=== PATIENT | male | born 1985 | race Caucasian/White ===

== ENCOUNTER 2022-06-26 14:21 | Emergency (ER) | payer OTHER ==
[~2022-06-26] VITALS: Ht 188 cm; Wt 136.5 kg
[2022-06-26 14:47] VITALS: O2SAT 98
[2022-06-26] MEDS ORDERED: KETOROLAC TROMETHAMINE 30 MG/ML VIAL IV STA (14:52)
[2022-06-26] MEDS ORDERED: FAMOTIDINE 20 MG/2 ML VIAL IV STA (14:52)
[2022-06-26] MEDS ORDERED: ONDANSETRON HCL INJ 2MG/ML 2ML 2 MG/ML VIAL IV STA (14:52)
[2022-06-26] MEDS ORDERED: SODIUM CHLORIDE 0.9% 1000ML 1,000 ML IV STA (14:57)
[2022-06-26] MEDS ORDERED: SODIUM CHLORIDE 0.9% 1000ML 1,000 ML ONE (15:00)
[2022-06-26] MEDS ORDERED: KETOROLAC TROMETHAMINE 30 MG/ML VIAL ONE (15:00)
[2022-06-26] MEDS ORDERED: ONDANSETRON HCL INJ 2MG/ML 2ML 2 MG/ML VIAL IV ONE (15:00)
[2022-06-26] MEDS ORDERED: KETOROLAC TROMETHAMINE 30 MG/ML VIAL IV ONE (15:00)
[2022-06-26] MEDS ORDERED: FAMOTIDINE 20 MG/2 ML VIAL IV ONE ×2 (15:00)
[2022-06-26] MEDS ORDERED: SODIUM CHLORIDE 0.9% 1000ML 1,000 ML IV ONE (15:00)
[2022-06-26] MEDS ORDERED: IOPAMIDOL 370 MG/ML 100 ML INFUS..BTL INJ ONE (15:33)
[2022-06-26] MEDS ORDERED: METHYLPREDNISOLONE SOD SUCC 125 MG/2ML VIAL IV ONE (15:45)
[2022-06-26] MEDS ORDERED: LEVOFLOXACIN 500 MG TAB PO ONE (15:45)
[2022-06-26] MEDS ORDERED: PENTASA500 MG PO (15:48)
[2022-06-26] MEDS ORDERED: OMEPRAZOLE40 MG PO (15:48)
[2022-06-26] MEDS ORDERED: ONDANSETRON ODT4 MG PO (15:48)
[2022-06-26] MEDS ORDERED: METHYLPREDNISOLONE SOD SUCC 125 MG/2ML VIAL ONE (15:55)
[2022-06-26] MEDS ORDERED: LEVOFLOXACIN 500 MG TAB ONE (15:55)
== END 2022-06-26 16:46 | disposition home or self-care (01) ==
LOC: FSED 14:27
DX: R10.10 Upper abdominal pain, unspecified (principal); R11.0 Nausea; K50.90 Crohn's disease, unspecified, without complications; K52.9 Noninfective gastroenteritis and colitis, unspecified
CPT/HCPCS: 74177; 80048; 80076; 81003; 85025; 99284; J1885; J2405; J2930; J7030; Q9967

== ENCOUNTER 2022-06-29 09:04 | Inpatient (IN) | payer OTHER ==
[~2022-06-29] VITALS: Ht 185.4 cm; Wt 136.1 kg
[~2022-06-29 09:04] MED LIST: OMEPRAZOLE40 MG PO; ONDANSETRON ODT4 MG PO; PENTASA500 MG PO
[2022-06-29] MEDS ORDERED: METHYLPREDNISOLONE SOD SUCC 125 MG/2ML VIAL IV ONE (10:30)
[2022-06-29] MEDS ORDERED: ONDANSETRON HCL INJ 2MG/ML 2ML 2 MG/ML VIAL IV STA (10:35)
[2022-06-29] MEDS ORDERED: IOPAMIDOL 610MG/1ML 300 MG/ML VIAL IV ONE (10:36)
[2022-06-29] MEDS ORDERED: IOPAMIDOL 370 MG/ML 100 ML INFUS..BTL INJ ONE (10:38)
[2022-06-29] MEDS ORDERED: Morphine 4mg INJECTION 4 MG/ML INJ IV ONE (10:45)
[2022-06-29] MEDS ORDERED: Morphine 4mg INJECTION 4 MG/ML INJ ONE (10:58)
[2022-06-29] MEDS ORDERED: ONDANSETRON HCL INJ 2MG/ML 2ML 2 MG/ML VIAL ONE (10:58)
[2022-06-29] MEDS ORDERED: METHYLPREDNISOLONE SOD SUCC 125 MG/2ML VIAL ONE (10:58)
[2022-06-29] MEDS ORDERED: CIPROFLOXACIN 400 MG/D5W 200ML 200 ML IV ONE (10:59)
[2022-06-29] MEDS ORDERED: SODIUM CHLORIDE 0.9% 1000ML 1,000 ML ONE (10:59)
[2022-06-29] MEDS ORDERED: SODIUM CHLORIDE 0.9% 1000ML 1,000 ML IV SCH (11:00)
[2022-06-29] MEDS: CIPROFLOXACIN 400 MG/D5W 200ML 200 ML IV SCH ×2 (11:06→22:11)
[2022-06-29] MEDS ORDERED: PROMETHAZINE 25MG/ NS 50ML (IV) IV PRN (11:15)
[2022-06-29] MEDS ORDERED: METHYLPREDNISOLONE SOD SUCC 125 MG/2ML VIAL IV SCH (12:00)
[2022-06-29] MEDS: SODIUM CHLORIDE 0.9% 1000ML 1,000 ML IV SCH ×2 (12:47→22:11)
[2022-06-29 13:00] VITALS: BP 138/79; PULSE 68; RESP 18; TEMP 97.5; O2SAT 98
[2022-06-29] MEDS: Morphine 4mg INJECTION 4 MG/ML INJ IV PRN ×2 (15:24→19:38)
[2022-06-29] MEDS ORDERED: HYDRALAZINE HCL 20 MG/ML VIAL IV PRN (16:00)
[2022-06-29] MEDS ORDERED: ACETAMINOPHEN 325 MG TAB PO PRN (16:00)
[2022-06-29] MEDS ORDERED: PREDNISONE 20 MG TAB PO ONE (16:15)
[2022-06-29 16:30] VITALS: PULSE 69; RESP 18; O2SAT 98
[2022-06-29 16:58] VITALS: BP 115/65; PULSE 75; RESP 19; TEMP 98.4; O2SAT 97
[2022-06-29] MEDS ORDERED: CIPROFLOXACIN 400 MG/D5W 200ML 200 ML IV SCH (18:00)
[2022-06-29 20:42] VITALS: BP 109/64; PULSE 76; RESP 18; TEMP 97.8; O2SAT 97
[2022-06-29] MEDS: ONDANSETRON HCL INJ 2MG/ML 2ML 2 MG/ML VIAL IV PRN (23:17)
[2022-06-29] MEDS: HYDROMORPHONE 1MG/1ML INJ IV PRN (23:17)
[2022-06-30] VITALS (10 sets, daily range): BP systolic 107–136; BP diastolic 56–72; PULSE 66–91; RESP 16–20; TEMP 97.7–98; O2SAT 95–100
[2022-06-30] MEDS ORDERED: METHYLPREDNISOLONE SOD SUCC 40 MG/ML VIAL 1ML IV SCH (00:15)
[2022-06-30] MEDS: METHYLPREDNISOLONE SOD SUCC 125 MG/2ML VIAL IV SCH ×5 (00:43→23:53)
[2022-06-30] MEDS: HYDROMORPHONE 1MG/1ML INJ IV PRN ×5 (04:06→20:54)
[2022-06-30] MEDS: METRONIDAZOLE 500MG/NS 100ML 100 ML IV SCH ×4 (05:31→23:55)
[2022-06-30 06:34] LABS: BASOPHILS % 0.1 % (0.0-1.0); HEMOGLOBIN 15.3 g/dL (14.0-18.0); LYMPHOCYTES # (AUTO) 1.2 (1.0-3.2); LYMPHOCYTES % 7.8 % (18.0-39.1); MEAN CORPUSCULAR HEMOGLOBIN 28.8 pg (28-32); MEAN CORPUSCULAR VOLUME 84.7 fL (81-99); MONOCYTES # (AUTO) 0.4 (0.2-0.8); MONOCYTES % 2.7 % (4.4-11.3); NEUTROPHILS # (AUTO) 13.8 (2.1-6.9); NEUTROPHILS % 88.8 % (38.7-80.0); PLATELET COUNT 355 x10e3/uL (140-360); RED BLOOD COUNT 5.31 x10e6/uL (4.3-5.7); RED CELL DISTRIBUTION WIDTH 13.5 % (11.7-14.4)
[2022-06-30 06:44] LABS: MAGNESIUM 2.3 MG/DL (1.3-2.1)
[2022-06-30 07:01] LABS: CHOL/HDL RATIO 4.7 (3.9-4.7)
[2022-06-30 07:18] LABS: ALBUMIN 3.9 g/dL (3.5-5.0); ANION GAP 15.1 mmol/L (8-16); BILIRUBIN,DIRECT 0.4 mg/dL (0.0-0.5); CALCIUM 8.9 mg/dL (8.4-10.2); CREATININE, SERUM 0.86 mg/dL (0.72-1.25); POTASSIUM 4.1 mmol/L (3.5-5.1)
[2022-06-30 07:22] LABS: THYROID STIMULATING HORMONE 0.97 uIU/mL (0.350-4.940)
[2022-06-30] MEDS ORDERED: PREDNISONE 20 MG TAB PO SCH (09:00)
[2022-06-30] MEDS: CIPROFLOXACIN 400 MG/D5W 200ML 200 ML IV SCH ×2 (09:23→20:53)
[2022-06-30] MEDS: SODIUM CHLORIDE 0.9% 1000ML 1,000 ML IV SCH ×2 (09:30→16:26)
[2022-06-30] MEDS: ONDANSETRON HCL INJ 2MG/ML 2ML 2 MG/ML VIAL IV PRN ×2 (11:43→16:26)
[2022-07-01] VITALS (10 sets, daily range): BP systolic 107–116; BP diastolic 56–65; PULSE 60–89; RESP 17–21; TEMP 97.7–98.6; O2SAT 96–100
[2022-07-01] MEDS ORDERED: BISACODYL 5 MG TAB EC PO ONE ×2 (00:30→01:00)
[2022-07-01] MEDS: HYDROMORPHONE 1MG/1ML INJ IV PRN ×6 (01:53→22:45)
[2022-07-01] MEDS: METRONIDAZOLE 500MG/NS 100ML 100 ML IV SCH ×3 (05:33→17:04)
[2022-07-01] MEDS: SODIUM CHLORIDE 0.9% 1000ML 1,000 ML IV SCH ×3 (05:33→22:44)
[2022-07-01] MEDS: METHYLPREDNISOLONE SOD SUCC 125 MG/2ML VIAL IV SCH ×3 (05:35→17:02)
[2022-07-01 05:47] LABS: BASOPHILS % 0.1 % (0.0-1.0); HEMATOCRIT 45.3 % (38.2-49.6); HEMOGLOBIN 14.9 g/dL (14.0-18.0); LYMPHOCYTES # (AUTO) 1.1 (1.0-3.2); LYMPHOCYTES % 6.1 % (18.0-39.1); MEAN CORPUSCULAR HEMOGLOBIN 28.3 pg (28-32); MEAN CORPUSCULAR HGB CONC 32.9 g/dL (31-35); MEAN CORPUSCULAR VOLUME 86.1 fL (81-99); MONOCYTES # (AUTO) 0.8 (0.2-0.8); MONOCYTES % 4.4 % (4.4-11.3); NEUTROPHILS # (AUTO) 15.9 (2.1-6.9); NEUTROPHILS % 88.9 % (38.7-80.0); PLATELET COUNT 352 x10e3/uL (140-360); RED BLOOD COUNT 5.26 x10e6/uL (4.3-5.7); RED CELL DISTRIBUTION WIDTH 13.6 % (11.7-14.4)
[2022-07-01] MEDS: ONDANSETRON HCL INJ 2MG/ML 2ML 2 MG/ML VIAL IV PRN (07:20)
[2022-07-01] MEDS: CIPROFLOXACIN 400 MG/D5W 200ML 200 ML IV SCH ×2 (09:39→22:45)
[2022-07-01 14:05] LABS: WBC,FECAL (FECAL LACTOFERRIN) POSITIVE (NEGATIVE)
[2022-07-01] MEDS ORDERED: PENTASA500 MG PO (15:45)
[2022-07-01] MEDS: VANCOMYCIN HCL 125 MG CAPSULE PO SCH (17:02)
[2022-07-02] VITALS (9 sets, daily range): BP systolic 111–137; BP diastolic 49–76; PULSE 66–80; RESP 16–20; TEMP 97.6–98.5; O2SAT 96–99
[2022-07-02] MEDS: VANCOMYCIN HCL 125 MG CAPSULE PO SCH (00:30)
[2022-07-02] MEDS: METRONIDAZOLE 500MG/NS 100ML 100 ML IV SCH ×4 (00:30→17:19)
[2022-07-02] MEDS ORDERED: VANCOMYCIN 250MG/5ML ORAL SOLN PO STA (00:32)
[2022-07-02] MEDS: HYDROMORPHONE 1MG/1ML INJ IV PRN ×5 (02:50→20:22)
[2022-07-02] MEDS: VANCOMYCIN 250MG/5ML ORAL SOLN PO SCH ×3 (05:34→17:19)
[2022-07-02] MEDS: SODIUM CHLORIDE 0.9% 1000ML 1,000 ML IV SCH ×3 (05:35→20:25)
[2022-07-02] MEDS: TEMAZEPAM 15 MG CAP PO PRN (20:22)
[2022-07-03] MEDS: VANCOMYCIN 250MG/5ML ORAL SOLN PO SCH ×4 (00:37→17:28)
[2022-07-03] MEDS: METRONIDAZOLE 500MG/NS 100ML 100 ML IV SCH ×4 (00:37→17:27)
[2022-07-03] MEDS: SODIUM CHLORIDE 0.9% 1000ML 1,000 ML IV SCH ×2 (05:15→21:41)
[2022-07-03 05:45] LABS: BASOPHILS % 0.1 % (0.0-1.0); EOSINOPHILS # (AUTO) 0.1 (0.0-0.4); EOSINOPHILS % 0.7 % (0.0-6.0); HEMATOCRIT 44.8 % (38.2-49.6); HEMOGLOBIN 15.2 g/dL (14.0-18.0); LYMPHOCYTES # (AUTO) 3.8 (1.0-3.2); LYMPHOCYTES % 25.7 % (18.0-39.1); MEAN CORPUSCULAR HEMOGLOBIN 28.8 pg (28-32); MEAN CORPUSCULAR HGB CONC 33.9 g/dL (31-35); MONOCYTES # (AUTO) 1.6 (0.2-0.8); MONOCYTES % 10.6 % (4.4-11.3); NEUTROPHILS # (AUTO) 9.1 (2.1-6.9); NEUTROPHILS % 62.4 % (38.7-80.0); PLATELET COUNT 296 x10e3/uL (140-360); RED BLOOD COUNT 5.27 x10e6/uL (4.3-5.7); RED CELL DISTRIBUTION WIDTH 14.1 % (11.7-14.4)
[2022-07-03 06:09] LABS: ANION GAP 11.2 mmol/L (8-16); CALCIUM 8.4 mg/dL (8.4-10.2); CREATININE, SERUM 0.97 mg/dL (0.72-1.25); POTASSIUM 3.2 mmol/L (3.5-5.1)
[2022-07-03 06:32] VITALS: PULSE 77; RESP 20; O2SAT 95
[2022-07-03 07:55] LABS: MAGNESIUM 2.1 MG/DL (1.3-2.1); PHOSPHORUS 2.9 MG/DL (2.3-4.7)
[2022-07-03 08:30] VITALS: BP 127/58; PULSE 71; RESP 20; TEMP 98.3; O2SAT 97
[2022-07-03] MEDS ORDERED: POTASSIUM CHLORIDE 20 MEQ TAB CR PO ONE ×2 (08:30→09:30)
[2022-07-03 08:52] VITALS: BP 127/58; PULSE 71; RESP 20; TEMP 98.3; O2SAT 97
[2022-07-03 12:13] VITALS: BP 122/69; PULSE 74; RESP 16; TEMP 98.4; O2SAT 100
[2022-07-03 16:01] VITALS: BP 125/65; PULSE 71; RESP 19; TEMP 98.4; O2SAT 100
[2022-07-03 19:45] VITALS: PULSE 65; RESP 18; O2SAT 96
[2022-07-03] MEDS: TEMAZEPAM 15 MG CAP PO PRN (21:40)
[2022-07-04] MEDS: METRONIDAZOLE 500MG/NS 100ML 100 ML IV SCH ×3 (00:01→11:34)
[2022-07-04] MEDS: SODIUM CHLORIDE 0.9% 1000ML 1,000 ML IV SCH ×3 (00:01→14:08)
[2022-07-04] MEDS: VANCOMYCIN 250MG/5ML ORAL SOLN PO SCH ×3 (00:01→11:34)
[2022-07-04 00:43] VITALS: BP 109/71; PULSE 71; RESP 17; TEMP 98.7; O2SAT 100
[2022-07-04 04:37] VITALS: BP 120/67; PULSE 78; RESP 18; TEMP 98.8; O2SAT 100
[2022-07-04 08:11] VITALS: BP 123/74; PULSE 62; RESP 18; TEMP 97.9; O2SAT 100
[2022-07-04] MEDS: ONDANSETRON HCL INJ 2MG/ML 2ML 2 MG/ML VIAL IV PRN (08:14)
[2022-07-04] MEDS: HYDROMORPHONE 1MG/1ML INJ IV PRN ×2 (08:15→16:04)
[2022-07-04 08:55] VITALS: BP 123/74; PULSE 62; RESP 18; TEMP 97.9; O2SAT 100
[2022-07-04 11:53] VITALS: BP 125/75; PULSE 65; RESP 18; TEMP 98.1; O2SAT 100
[2022-07-04] MEDS ORDERED: POTASSIUM CHLORIDE 20 MEQ TAB CR PO STA (13:25)
[2022-07-04 16:50] VITALS: BP 127/74; PULSE 71; RESP 18; TEMP 98.3; O2SAT 98
== END 2022-07-04 16:45 | disposition home or self-care (01) | DRG 372 ==
LOC: FSED 09:08 → INTOOBSV 11:11 → ERHOLD 11:11 → MED/SURG2 12:40 → OBSVTOIN 07-01 15:57
PROVIDERS: ADMIT Internal Medicine; ATTEND Internal Medicine
PROC: 0T9B70Z Drainage of Bladder with Drainage Device, Via Natural or Artificial Opening (ICD-10-PCS; principal; 2022-07-03)
DX: A04.72 Enterocolitis due to Clostridium difficile, not specified as recurrent (principal); K50.90 Crohn's disease, unspecified, without complications; Z68.41 Body mass index [BMI] 40.0-44.9, adult; K80.20 Calculus of gallbladder without cholecystitis without obstruction; R33.9 Retention of urine, unspecified; E66.01 Morbid (severe) obesity due to excess calories
CPT/HCPCS: 36415; 74177; 80048; 80061; 80076; 81003; 83036; 83630; 83735; 83993; 84100; 84443; 85025; 86140; 86256; 86671; 87045; 87177; 87324; 87449; 94799; 96361; 96374; 96375; 96376; 99284; G0378; J1170; J2270; J2405; J2550; J2930; J7030; J7512; Q9967

== ENCOUNTER → 2022-08-07 | Day surgery (SDC) | payer OTHER ==
[~2022-08-07] MED LIST changes: +FLOMAX0.4 MG PO; +LACTATED RINGER'S 1,000 ML ONE; +LIDOCAINE HCL 2% LOCAL INJ 5 ML SDV VIAL INJ ONE; +MIDAZOLAM HCL 2 MG/2 ML VIAL ONE; +PROPOFOL IV EMULSION 10 MG/ML 20 ML VIAL ONE; +Z QUIL PO
[2022-08-07 12:17] VITALS: TEMP 97.1
[2022-08-07 12:37] VITALS: BP 123/88; PULSE 90; RESP 18; O2SAT 100
== END | disposition home or self-care (01) ==
LOC: OR 09:40
PROVIDERS: ATTEND Internal Medicine Gastroenterology
DX: K52.9 Noninfective gastroenteritis and colitis, unspecified (principal); Z86.19 Personal history of other infectious and parasitic diseases; K64.8 Other hemorrhoids; K62.89 Other specified diseases of anus and rectum; Z71.3 Dietary counseling and surveillance; E66.9 Obesity, unspecified; I10 Essential (primary) hypertension; Z88.6 Allergy status to analgesic agent; Z68.36 Body mass index [BMI] 36.0-36.9, adult; Z80.0 Family history of malignant neoplasm of digestive organs
CPT/HCPCS: 45380; 83993; 86140; J2001; J2250; J2704; J7121; 45378